=== PATIENT | male | born 1985 | race African-American/Black ===

== ENCOUNTER 2020-04-26 21:36 | Emergency (ER) | payer OTHER ==
[~2020-04-26] VITALS: Ht 188 cm; Wt 104.3 kg
[~2020-04-26 21:36] MED LIST: AFRIN15 ML NS; IBUPROFEN 600600 M1 PO; NAPROSYN500 MG PO; ROBAXIN500 MG PO
[2020-04-26] MEDS ORDERED: CARVEDILOL12.5 MG PO (21:54)
[2020-04-26 21:57] LABS: ABSOLUTE NEUTROPHILS 5.9 thou/uL (1.4-8.2); BASOPHILS 0.5 % (0.0-2.0); EOSINOPHILS 2.1 % (0.0-3.0); HEMATOCRIT 44.9 % (42.0-52.0); HEMOGLOBIN 14.5 gm/dL (14.0-18.0); LYMPHOCYTES 36.8 % (24.0-44.0); MCH 26.6 pg (26.0-34.0); MCHC 32.2 g/dL (28.0-37.0); MCV 82.5 fL (80.0-100.0); MONOCYTES 9.1 % (1.0-8.0); PLATELET COUNT 311 thou/uL (150-400); POLYS 51.5 % (36.0-66.0); RBC 5.44 mil/uL (4.50-6.00); WBC 11.5 thou/uL (4.0-11.0)
[2020-04-26 22:04] LABS: ANION GAP 12 mmol/L (7-16); BUN 15 mg/dL (7-18); CALCIUM 8.7 mg/dL (8.5-10.1); CHLORIDE 102 mmol/L (98-107); CO2 26 mmol/L (21-32); CREATININE 0.9 mg/dL (0.7-1.3); GLUCOSE 127 mg/dL (74-106); POTASSIUM 3.8 mmol/L (3.5-5.1); SODIUM 140 mmol/L (136-145)
[2020-04-26 22:13] LABS: TROPONIN-I <0.06 ng/mL (<0.06)
[2020-04-27 00:42] LABS: AMP/METHAMP Negative (Negative); BARBITURATES Negative (Negative); BENZODIAZEPINES Negative (Negative); COCAINE Negative (Negative); METHADONE Negative (Negative); OPIATES Negative (Negative); PCP POSITIVE (Negative)
[2020-04-27 01:03] VITALS: BP 130/83
--- NOTE | 2020-04-27 07:18 | EKG ---
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1985 Requested By: Gurinder Mak Order Number: [id number] MD: Everardo Josue Measurements Intervals [place] Rate: 101 P: 65 FL: 170 QRS: 13 QRSD: 90 T: 61 QT: 330 QTc: 428 Interpretive Statements Sinus tachycardia Probable left atrial enlargement RSR' in V1 or V2, probably normal variant ST elev, probable normal early repol pattern Artifact in lead(s) V1,V2 No previous ECG available for comparison Electronically Signed On 04-27-2020 7:18:37 CDT by Everardo Josue [email or web address] <ELECTRONICALLY SIGNED> By: Everardo Josue MD, [facility] 04/27/20 0718 02 02 Everardo Josue MD, [facility] /EPI
--- NOTE | 2020-04-27 12:23 | EKG ---
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1985 Requested By: Jeromy Humphrey Order Number: [id number] MD: Everardo Josue Measurements Intervals [place] Rate: 100 P: 68 [place]: 171 QRS: 17 QRSD: 86 T: -18 QT: 321 QTc: 414 Interpretive Statements Sinus tachycardia Probable left atrial enlargement Repol abnrm suggests ischemia, inferior leads Mild ST elevation, consider anterolateral injury Artifact in lead(s) II,III,aVR,aVL,aVF,V1,V2 No previous ECG available for comparison Electronically Signed On 04-27-2020 12:23:20 CDT by Everardo Josue [email or web address] <ELECTRONICALLY SIGNED> By: Everardo Josue MD, [facility] 04/27/20 1223 51 51 Everardo Josue MD, [facility] /EPI
== END 2020-04-27 01:10 | disposition still patient (30) ==
LOC: ER 21:36
PROVIDERS: Nurse Practitioner
DX: R00.2 Palpitations (principal); R44.3 Hallucinations, unspecified; F17.210 Nicotine dependence, cigarettes, uncomplicated; Z79.899 Other long term (current) drug therapy